=== PATIENT | female | born 2000 | race Caucasian/White ===

== ENCOUNTER 2022-12-19 21:35 | Emergency (ER) | payer OTHER ==
[~2022-12-19] VITALS: Ht 165 cm; Wt 77.0 kg
[2022-12-19 21:48] VITALS: BP 132/82
[2022-12-19] MEDS ORDERED: NS IV 1000 ML 1,000 ML IV STA (22:04)
--- NOTE | 2022-12-19 22:09 | ED Back Pain ---
General Chief Complaint: Back Problems Stated Complaint: UTI SYMPTOMS/LOW BACK PAIN Nursing Triage Note: PATIENT STATES DIAGNOSED THREE DAYS AGO WITH UTI, STARTED ANTIBIOTIC MACROBID AND PYRDIUM TODAY. PATIENT STATES SHE HAS NOT TAKEN AYTHING EXCEPT AZO FOR PAIN. Source of Information: Patient Exam Limitations: No Limitations (TIMO MUELLER) History of Present Illness Date Seen by Provider: Dec 19, 2022 Time Seen by Provider: 22:06 Initial Comments Patient is a 22-year-old female who presents ED with right flank and left-sided abdominal pain. She states pain started last night in her right flank. Sharp and stabbing and fairly constant. Started having secondary pain on her left side without radiation. She reports nausea without vomiting or diarrhea. She has had urinary symptoms for the past 2 or 3 days. She was seen today started on Macrobid and Pyridium. She did take Pyridium without much improvement. She states last menstrual cycle was December 03. She states she feels feverish with chills. She denies of any chest pain, shortness of breath, headache, dizziness, sore throat, ear pain, visual changes, vomiting, diarrhea. (TIMO MUELLER) Allergies and Home Medications Allergies Coded Allergies: No Known Drug Allergies (Unverified , 12/19/22) Patient Home Medication List Home Medication List Reviewed: Yes (HUSAM MEDINA MD) Ciprofloxacin HCl (Ciprofloxacin HCl) 500 Mg Tablet, 500 MG PO BID Prescribed by: HUSAM MEDINA on 12/20/2299 Ketorolac Tromethamine (Ketorolac Tromethamine) 10 Mg Tablet, 10 MG PO Q8H PRN for PAIN-MODERATE (5-7) Prescribed by: HUSAM MEDINA on 12/20/2299 Ondansetron (Ondansetron Odt) 4 Mg Tab.rapdis, 4 MG SL Q8H PRN for NAUSEA/VOMITING Prescribed by: HUSAM MEDINA on 12/20/22100 Review of Systems Constitutional: chills; No diaphoresis; malaise EENTM: No ear pain, No blurred vision Respiratory: No cough, No dyspnea on exertion Cardiovascular: No chest pain Gastrointestinal: abdominal pain; No diarrhea; nausea; No vomiting Genitourinary: No decreased output, No discharge Musculoskeletal: back pain; No joint pain, No joint swelling, No muscle pain Skin: No change in color, No change in hair/nails (TIMO MUELLER) All Other Systems Reviewed Negative Unless Noted: Yes (TIMO MUELLER) Past Gjvssgh-Ljzaeb-Thywve Hx Patient Social History Tobacco Use?: No Alcohol Use?: Yes Alcohol type: Beer Alcohol Frequency: Couple times a week (TIMO MUELLER) Immunizations Up To Date Influenza Vaccine Up-to-Date: Yes; Up-to-Date (TIMO MUELLER) Physical Exam Vital Signs Vital Signs - First Documented 12/19/22 21:48 Temp 37.0 Pulse 102 Resp 20 B/P (MAP) 132/82 (99) Pulse Ox 96 O2 Delivery Room Air (HUSAM MEDINA MD) Vital Signs Capillary Refill : Less Than 3 Seconds (TIMO MUELLER) Height, Weight, BMI Height: '" Weight: lbs. oz. kg; 28.00 BMI Method: General Appearance: No Apparent Distress, WD/WN HEENT: PERRL/EOMI, TMs Normal, Normal ENT Inspection, Pharynx Normal Neck: Full Range of Motion, Normal Inspection, Non Tender, Supple Cardiovascular: Regular Rate, Rhythm, No Edema, No Gallop, No JVD Respiratory: Chest Non Tender, Lungs Clear, Normal Breath Sounds, No Accessory Muscle Use Gastrointestinal: Normal Bowel Sounds, No Organomegaly, No Pulsatile Mass, Other (Left lower quadrant tenderness. 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 Norm as Tested Skin: Normal Color, Warm/Dry (TIMO MUELLER) Progress/Results/Core Measures Results/Orders Lab Results Laboratory Tests Test 12/19/22 22:15 Range/Units White Blood Count 15.0 H 4.3-11.0 10^3/uL Red Blood Count 4.20 3.80-5.11 10^6/uL Hemoglobin 12.1 11.5-16.0 g/dL Hematocrit 37 35-52 % Mean Corpuscular Volume 87 80-99 fL Mean Corpuscular Hemoglobin 29 25-34 pg Mean Corpuscular Hemoglobin Concent 33 32-36 g/dL Red Cell Distribution Width 12.4 10.0-14.5 % Platelet Count 267 130-400 10^3/uL Mean Platelet Volume 9.2 9.0-12.2 fL Immature Granulocyte % (Auto) 0 % Neutrophils (%) (Auto) 72 42-75 % Lymphocytes (%) (Auto) 19 12-44 % Monocytes (%) (Auto) 7 0-12 % Eosinophils (%) (Auto) 1 0-10 % Basophils (%) (Auto) 0 0-10 % Neutrophils # (Auto) 10.8 H 1.8-7.8 10^3/uL Lymphocytes # (Auto) 2.9 1.0-4.0 10^3/uL Monocytes # (Auto) 1.1 H 0.0-1.0 10^3/uL Eosinophils # (Auto) 0.2 0.0-0.3 10^3/uL Basophils # (Auto) 0.0 0.0-0.1 10^3/uL Immature Granulocyte # (Auto) 0.0 0.0-0.1 10^3/uL Urine Color ORANGE Urine Clarity CLEAR Urine pH 7.0 5-9 Urine Specific [place] 1.015 L 1.016-1.022 Urine Protein 3+ H NEGATIVE Urine Glucose (UA) TRACE H NEGATIVE Urine Ketones NEGATIVE NEGATIVE Urine Nitrite POSITIVE H NEGATIVE Urine Bilirubin NEGATIVE NEGATIVE Urine Urobilinogen 1.0 < = 1.0 MG/DL Urine Leukocyte Esterase 1+ H NEGATIVE Urine RBC (Auto) 3+ H NEGATIVE Urine RBC 25-50 H /HPF Urine WBC 10-25 H /HPF Urine Squamous Epithelial Cells 0-2 /HPF Urine Crystals NONE /LPF Urine Bacteria FEW H /HPF Urine Casts NONE /LPF Urine Mucus NEGATIVE /LPF Urine Culture Indicated YES Sodium Level 136 135-145 MMOL/L Potassium Level 3.7 3.6-5.0 MMOL/L Chloride Level 104 98-107 MMOL/L Carbon Dioxide Level 20 L 21-32 MMOL/L Anion Gap 12 5-14 MMOL/L Blood Urea Nitrogen 11 7-18 MG/DL Creatinine 0.82 0.60-1.30 MG/DL Estimat Glomerular Filtration Rate 105 BUN/Creatinine Ratio 13 Glucose Level 102 70-105 MG/DL Calcium Level 9.4 8.5-10.1 MG/DL Corrected Calcium 9.1 8.5-10.1 MG/DL Total Bilirubin 0.5 0.1-1.0 MG/DL Aspartate Amino Transf (AST/SGOT) 27 5-34 U/L Alanine Aminotransferase (ALT/SGPT) 34 0-55 U/L Alkaline Phosphatase 92 40-136 U/L Total Protein 7.9 6.4-8.2 GM/DL Albumin 4.4 3.2-4.5 GM/DL Lipase 38 8-78 U/L Serum Test, Qualitative NEGATIVE NEGATIVE (HUSAM MEDINA MD) Medications Given in ED Current Medications Medications Dose Ordered Sig/Forrest Route Start Time Stop Time Status Last Admin Dose Admin Ketorolac Tromethamine 30 mg ONCE ONCE IVP 12/19/22 22:15 12/19/22 22:16 DC 12/19/22 22:15 30 MG (HUSAM MEDINA MD) Vital Signs/I&O 12/19/22 21:48 Temp 37.0 Pulse 102 Resp 20 B/P (MAP) 132/82 (99) Pulse Ox 96 O2 Delivery Room Air (HUSAM MEDINA MD) Blood Pressure Mean: 99 Progress Progress Note : Time: 01:03 Progress Note Patient care assumed at shift change, at 11:30 PM from ALEKSANDRA Marin. CT pending. Patient seen and evaluated by me. Labs independently reviewed and interpreted by me. Her CBC shows an elevated white blood cell count of 15,000 with a hemoglobin of 12, hematocrit of 37. Normal platelets at 267. Chem-12 is reviewed and completely normal. Urine test is negative. Urinalysis shows 3+ protein, nitrite positive, 25-50 red blood cells per high-powered field, 10-25 white blood cells per high-powered field and few bacteria. Patient was treated in the emergency department with a liter of normal saline, 30 mg of Toradol IV and 1 g of Rocephin. She is feeling better, mild pain in the right flank. Her CVA tenderness is improved. Abdomen is soft. No right upper quadrant abdominal pain, negative Holguin's. No rebound tenderness, no involuntary guarding. She is mildly tender to palpation in the right pelvis/suprapubic region. Her vital signs are stable. She is currently not nauseated. CT scan of the abdomen and pelvis stone protocol shows no significant findings in the abdomen or pelvis per stat read. We discussed changing her antibiotics from nitrofurantoin to a little bit broader spectrum antibiotic. I suspect clinically she has developing pyelonephritis. Would change her to Cipro 500 mg twice daily for 7 days. I am adding a little Toradol for home as well as some Zofran. She has a prescription for Pyridium. We will give her a school note for tomorrow, I have encouraged fluids and given her return precautions both in verbal and written format. Her parents are present at the bedside as well. She verbalized understanding and agreement of the discharge instructions. All questions are sought and answered. Patient is improved at discharge. (HUSAM MEDINA MD) Diagnostic Imaging Diagonstic Imaging: CT Comments CT abdomen and pelvis without contrastper stat read no acute findings in the abdomen or pelvis (HUSAM MEDINA MD) Departure Communication (PCP) Patient is a 22-year-old female with right flank pain and left lower quad abdominal pain. Had urinary symptoms a few days prior was seen today at [facility] tested positive for UTI was started on Macrobid. She states symptoms became worse this evening vomiting fever chills. Patient afebrile slight tachycardic at 102. Concern for cystitis versus pyelonephritis versus nephrolithiasis. She denies of any vaginal discharge or concern for sexual transmitted infection. No current vaginal bleeding or on her menstrual cycle. Not concern for . CBC, CMP, lipase, urinalysis was ordered. White blood count 15. She did receive a liter of fluid and ketorolac. Improvement of pain as well as her heart rate. CT abdomen pelvis without contrast was ordered and currently pending. Currently pain-free. She did receive a dose of Rocephin after urinalysis test positive UTI. Negative for . Patient was discussed with Dr. Medina who took over care [address] scan. (TIMO MUELLER) Impression Primary Impression: Pyelonephritis Disposition: 01 HOME, SELF-CARE Condition: Improved Departure-Patient Inst. Decision time for Depature: 00:58 (HUSAM MEDINA MD) Referrals: NO,LOCAL PHYSICIAN (PCP/Family) Primary Care Physician Patient Instructions: Kidney Infection Add. Discharge Instructions: Drink plenty of fluids to stay well-hydrated. Use the ketorolac 10 mg tablets 1 every 8 hours with a small snack, as needed for pain. You can also take extra strength Tylenol 2 tablets every 6 hours as needed for pain. I have prescribed you some ondansetron/Zofran 4 mg tablets. Use 1 orally disintegrating tablet every 8 hours as needed for nausea. I have changed her antibiotics from the nitrofurantoin to ciprofloxacin 500 mg. Take 1 twice a day for 7 days. Please finish the entire course. If after a couple of days of antibiotics you are still having significant pain especially with fever, vomiting or any other emergent, concerning symptoms please return to the emergency department for reevaluation. Scripts Ondansetron (Ondansetron Odt) 4 Mg Tab.rapdis 4 MG SL Q8H PRN for NAUSEA/VOMITING, #12 TAB Prov: HUSAM MEDINA MD 12/20/22 Ciprofloxacin HCl (Ciprofloxacin HCl) 500 Mg Tablet 500 MG PO BID, #14 TAB Prov: HUSAM MEDINA MD 12/20/22 Ketorolac Tromethamine (Ketorolac Tromethamine) 10 Mg Tablet 10 MG PO Q8H PRN for PAIN-MODERATE (5-7), #6 TAB Prov: HUSAM MEDINA MD 12/20/22 Work/School Note: School/Childcare Release Date Seen in the Emergency Department: Dec 19, 2022 Time Dismissed from Emergency Department: 01:03 Return to School: Dec 21, 2022 TIMO MUELLER Dec 19, 2022 22:09 HUSAM MEDINA MD Dec 20, 2022 01:03
[2022-12-19] MEDS ORDERED: KETOROLAC INJ 30 MG/ML VIAL IVP ONE (22:15)
[2022-12-19 22:24] LABS: BASOPHILS % (AUTO) 0 % (0-10); EOSINOPHILS # (AUTO) 0.2 10^3/uL (0.0-0.3); EOSINOPHILS % (AUTO) 1 % (0-10); HEMATOCRIT 37 % (35-52); HEMOGLOBIN 12.1 g/dL (11.5-16.0); LYMPHOCYTES # (AUTO) 2.9 10^3/uL (1.0-4.0); LYMPHOCYTES % (AUTO) 19 % (12-44); MEAN CORPUSCULAR HEMOGLOBIN 29 pg (25-34); MEAN CORPUSCULAR HGB CONC 33 g/dL (32-36); MEAN CORPUSCULAR VOLUME 87 fL (80-99); MEAN PLATELET VOLUME 9.2 fL (9.0-12.2); MONOCYTES # (AUTO) 1.1 10^3/uL (0.0-1.0); MONOCYTES % (AUTO) 7 % (0-12); NEUTROPHILS # (AUTO) 10.8 10^3/uL (1.8-7.8); NEUTROPHILS % (AUTO) 72 % (42-75); PLATELET COUNT 267 10^3/uL (130-400)
[2022-12-19 22:37] LABS: ALBUMIN 4.4 GM/DL (3.2-4.5)
[2022-12-19 22:38] LABS: POTASSIUM 3.7 MMOL/L (3.6-5.0)
[2022-12-19 22:39] LABS: CALCIUM 9.4 MG/DL (8.5-10.1)
[2022-12-19 22:40] LABS: TOTAL PROTEIN 7.9 GM/DL (6.4-8.2)
[2022-12-19 22:42] LABS: BILIRUBIN,TOTAL 0.5 MG/DL (0.1-1.0)
[2022-12-19 22:44] LABS: CREATININE SERUM 0.82 MG/DL (0.60-1.30)
[2022-12-19 22:52] LABS: BACTERIA,URINE FEW /HPF; BILIRUBIN,URINE NEGATIVE (NEGATIVE); CLARITY,URINE CLEAR; COLOR,URINE ORANGE; GLUCOSE, URINE (UA) TRACE (NEGATIVE); KETONES,URINE NEGATIVE (NEGATIVE); LEUKOCYTE ESTERASE ,URINE 1+ (NEGATIVE); NITRITE,URINE POSITIVE (NEGATIVE); PROTEIN,URINE 3+ (NEGATIVE); RBC,URINE 25-50 /HPF; SQUAMOUS EPITHELIAL CELL,UR 0-2 /HPF
[2022-12-19] MEDS ORDERED: cefTRIAXone IV/IM 1,000 MG in NS (IVPB) 50 ML 50 ML IV STA (22:56)
[2022-12-20] MEDS ORDERED: KETO10TA PO (01:00)
[2022-12-20] MEDS ORDERED: CIPR500T5 PO (01:00)
[2022-12-20] MEDS ORDERED: ONDA4TAB11 SL (01:01)
--- NOTE | 2022-12-20 07:10 | Diagnostic Imaging Report ---
Clinical indications: Patient with bilateral flank pain. Patient on antibiotics for UTI. Exam: CT exam of the abdomen and pelvis is performed without IV or oral contrast using stone protocol. Coronal and sagittal reformatted images were created. Auto Exposure Controls were utilized during the CT exam to meet ALARA standards for radiation dose reduction. Comparisons: None. Findings: Visualized lung bases: There is minimal atelectasis involving the posterior aspects of the right lung base. Liver: Unremarkable as visualized. Gallbladder: Unremarkable. Pancreas: Unremarkable as visualized. Spleen: Unremarkable as visualized. Adrenal glands: Unremarkable. Kidneys/ ureters: Unremarkable as visualized. Aorta: Unremarkable as visualized. Intraabdominal/ retroperitoneal contents: There are multiple nonspecific subcentimeter mesenteric lymph nodes seen in the pericecal mesenteric region. Intestines: Unremarkable as visualized. Appendix: Unremarkable. Bladder: Unremarkable as visualized. Pelvic organs: Unremarkable as visualized. Extra abdominal/ pelvis regions: The uterus and adnexal structures are unremarkable. Abdominal wall: Unremarkable. Bones: Unremarkable. Impression: There is no CT evidence of acute abdominal or pelvic process. There are no urinary tract stones. I agree with [facility] report. Dictated by: Dictated on workstation # [id number]
== END 2022-12-20 01:10 | disposition home or self-care (01) ==
LOC: ER 21:37
DX: N12 Tubulo-interstitial nephritis, not specified as acute or chronic (principal)
CPT/HCPCS: 36415; 74176; 80053; 81000; 83690; 84703; 85025; 87088; 96361; 96374; 96375